=== PATIENT | male | born 1930 | race Caucasian/White ===

== ENCOUNTER 2017-09-29 17:19 | Emergency (ER) | payer OTHER ==
[~2017-09-29] VITALS: Ht 172.7 cm; Wt 104.3 kg
[~2017-09-29 17:19] MED LIST: COLESTID1 GM PO; DILTIAZEM ER180 MG PO; FLAGYL500 MG; IRON; LIALDA1.2 GM PO; LIORESAL 10 MG10 MG PO; NORCO 5-325 TA1 EACH PO; PERCOCET 5-3251 EACH PO; POTASSIUM20; PROBIOTIC1 EAC1 PO; TRAMADOL 50 MG50 MG PO; UNICOMPLEX M TA1 TA1 PO; XARELTO10 MG PO; ZOFRAN ODT4 MG PO
[2017-09-29] MEDS ORDERED: LISINOPRIL20 MG (17:43)
[2017-09-29] MEDS ORDERED: HYDROCODON-ACE1 EAC7 PO (18:44)
[2017-09-29 19:02] VITALS: BP 186/90
== END 2017-09-29 19:04 | disposition home or self-care (01) ==
LOC: M.ERS 17:19
DX: S70.02XA Contusion of left hip, initial encounter (principal); Z96.652 Presence of left artificial knee joint; W18.2XXA Fall in (into) shower or empty bathtub, initial encounter; Y93.89 Activity, other specified; Y92.89 Other specified places as the place of occurrence of the external cause; Y99.8 Other external cause status